=== PATIENT | female | born 1955 | race Caucasian/White ===

== ENCOUNTER 2024-07-12 17:38 | Observation (INO) ==
[2024-07-12] MEDS ORDERED: ONDANSETRON 4 MG/2 ML VIAL IV PRN ×2 (18:10→19:31)
[2024-07-12] MEDS: KETOROLAC 15 MG/ML VIAL IV ONE (18:23)
[2024-07-12] MEDS: PIPERACILLIN SODIUM/TAZOBACTAM 3.375 GM VIAL IV ONE ×2 (18:24→18:29)
[2024-07-12] MEDS: PIPERACILLIN SODIUM/TAZOBACTAM 3.375 GM in DEXTROSE 5% IN WATER 100 ML IV SCH ×2 (18:29→22:49)
[2024-07-12] MEDS: 0.9 % SODIUM CHLORIDE 1,000 ML IV SCH (18:32)
[2024-07-12] MEDS: PIPERACILLIN SODIUM/TAZOBACTAM 3.375 GM in DEXTROSE 5% IN WATER 50 ML IV ONE (18:32)
[2024-07-12] MEDS ORDERED: diphenhydrAMINE 25 MG CAPSULE PO PRN (19:31)
[2024-07-12 20:02] LABS: INR 0.9 (0.9-1.1); Prothrombin Time 12.8 sec (11.9-14.5)
[2024-07-12] MEDS: ACETAMINOPHEN 1,000 MG/100 ML BAG IV SCH (20:27)
[2024-07-12] MEDS: HYDROmorphone 0.5 MG/0.5 ML SYRINGE IV PRN (22:49)
[2024-07-13 06:29] LABS: Basophils # (Auto) 0.01 K/mcL (0.00-0.30); Basophils % (Auto) 0.1 % (0.0-2.0); Eosinophils # (Auto) 0.09 K/mcL (0.00-0.70); Eosinophils % (Auto) 0.8 % (0.0-7.0); Hematocrit 35.1 % (34.1-44.9); Hemoglobin 11.5 g/dL (11.2-15.7); Lymphocytes # (Auto) 1.12 K/mcL (1.50-4.80); Lymphocytes % (Auto) 9.9 % (15.5-49.0); Mean Cell Volume 93.9 fL (80.0-100.0); Mean Corpuscular HGB Conc 32.8 g/dL (31.0-36.0); Mean Platelet Volume 11.2 fL (8.8-12.5); Monocytes # (Auto) 0.87 K/mcL (0.10-0.90); Monocytes % (Auto) 7.7 % (1.0-12.0); Neutrophils % (Auto) 81.3 % (38.0-78.0); Platelet Count 239 K/mcL (140-440); RBC 3.74 M/mcL (3.59-5.38); Red Cell Distribution Width 14.2 % (11.5-14.5); WBC 11.3 K/mcL (4.5-11.0)
[2024-07-13 06:48] LABS: ALT/SGPT 31 U/L (<40); AST/SGOT 25 U/L (<32); Albumin 3.7 gm/dL (3.2-5.2); Albumin/Globulin Ratio 1.8 (1.0-2.3); Alkaline Phosphatase 73 U/L (39-117); Bilirubin,Direct 0.5 mg/dL (<0.3); Bilirubin,Total 0.8 mg/dL (0.1-1.0); Blood Urea Nitrogen 12 mg/dL (8-23); Calcium 8.4 mg/dL (8.6-10.4); Carbon Dioxide 26 mmol/L (22-30); Chloride 104 mmol/L (96-108); Globulin 2.1 gm/dL (2.2-3.7); Glomerular Filtration Rate 92; Glucose 130 mg/dL (70-105); Lactate Dehydrogenase 147 U/L (135-225); Potassium 3.6 mmol/L (3.3-5.1); Sodium 141 mmol/L (133-145); Triglycerides 69 mg/dL (<150); Uric Acid 4.2 mg/dL (2.5-8.0)
[2024-07-13] MEDS: PANTOPRAZOLE 40 MG VIAL IV SCH (07:18)
[2024-07-13] MEDS: OLMESARTAN MEDOXOMIL 20 MG TABLET PO SCH (08:11)
[2024-07-13] MEDS ORDERED: fentaNYL 100 MCG/2 ML VIAL ONE (09:45)
[2024-07-13] MEDS ORDERED: SUGAMMADEX SODIUM 200 MG/2 ML VIAL IV ONE ×2 (09:45→11:22)
[2024-07-13] MEDS ORDERED: PROPOFOL 200 MG/20 ML VIAL IV ONE (09:45)
[2024-07-13] MEDS ORDERED: KETAMINE 50 MG/ML Syringe IV ONE (09:45)
[2024-07-13] MEDS ORDERED: ROCURONIUM 10 MG/ML ML IV ONE (09:47)
[2024-07-13] MEDS ORDERED: DEXAMETHASONE 10 MG/ML VIAL ONE (09:47)
[2024-07-13] MEDS ORDERED: LIDOCAINE 2% PF 5 ML VIAL ONE (09:47)
[2024-07-13] MEDS ORDERED: ONDANSETRON 4 MG/2 ML VIAL ONE (09:47)
[2024-07-13] MEDS ORDERED: GLYCOPYRROLATE 0.2 MG/ML VIAL IV ONE (09:47)
[2024-07-13] MEDS ORDERED: PHENYLephrine 1 MG/10 ML SYRINGE (ANEST) ONE (10:34)
[2024-07-13] MEDS ORDERED: FAMOTIDINE/PF 20 MG/2 ML VIAL IV ONE (10:37)
[2024-07-13] MEDS ORDERED: MAGNESIUM SULFATE 2 GM/50 ML BAG IV ONE (10:40)
[2024-07-13] MEDS ORDERED: IPRATROPIUM/ALBUTEROL 3 ML AMPUL.NEB NEB PRN (10:55)
[2024-07-13] MEDS ORDERED: ONDANSETRON 4 MG/2 ML VIAL IV PRN (10:55)
[2024-07-13] MEDS ORDERED: DEXMEDETOMIDINE HCL 200 MCG/2 ML VIAL ONE (11:03)
[2024-07-13] MEDS: fentaNYL 100 MCG/2 ML VIAL IV PRN (12:03)
[2024-07-13] MEDS: HYDROmorphone 0.5 MG/0.5 ML SYRINGE IV ONE (12:37)
[2024-07-13] MEDS: LACTATED RINGERS 1,000 ML IV SCH (12:37)
[2024-07-13] MEDS: CARVEDILOL 12.5 MG TABLET PO SCH (17:37)
[2024-07-14] MEDS: amLODIPine 5 MG TABLET PO SCH (08:50)
[2024-07-14 11:34] VITALS: TEMP 98.1; O2SAT 94
[2024-07-14] MEDS ORDERED: PIPERACILLIN SODIUM/TAZOBACTAM 3.375 GM in 0.9 % SODIUM CHLORIDE 100 ML IV SCH (14:00)
== END 2024-07-14 13:11 | disposition home or self-care (01) ==
LOC: MEDSUR 17:38 → ED 17:38 → MEDSUR 21:13
PROVIDERS: ADMIT Family Medicine Adult Medicine; ATTEND Family Medicine Adult Medicine
PROC: LAPAPPY (ICD-10-PCS; 2024-07-13 10:20)